=== PATIENT | female | born 1960 | race Two or more races ===

== ENCOUNTER 2023-04-24 08:15 | Inpatient (IN) | payer OTHER ==
[~2023-04-24] VITALS: Ht 162.6 cm; Wt 97.5 kg
[~2023-04-24 08:15] MED LIST: DIOVAN HCT 160-1 TAB PO; NORVASC2.5 MG PO; PERCOCET 5/321 UDTAB PO; PERCOCET 5/3251 TAB PO; SINGULAIR10 MG PO; TOPROL XL25 MG PO
[2023-04-24 10:13] LABS: PH,URINE 6.5 (5.0-8.0); URINE APPEARANCE Clear; URINE BILIRRUBIN Negative (NEGATIVE); URINE BLOOD Negative; URINE COLOR Yellow; URINE GLUCOSE Negative (NEGATIVE); URINE LEUKOCYTE Negative; URINE NITRATE Negative; URINE PROTEIN Negative (NEGATIVE); URINE UROBILINOGEN 0.2 E.U./dl
[2023-04-24 10:14] LABS: URINE BACTERIA 94.4 uL (0.0-1933); URINE EPITHELIAL CELLS 4.9 uL (0.0-38.8); URINE WBC 3.2 uL (0.0-23.2)
[2023-04-24 10:27] LABS: HEMATOCRIT 38.1 % (36.0-45.00); HEMOGLOBIN 12.3 g/dL (12.0-15.00); MEAN CELL VOLUME 79.6 fL (80.00-100.00); MEAN CORPUSCULAR HEMOGLOBIN 25.6 pg (27.00-32.0); MEAN CORPUSCULAR HGB CONC 32.1 g/dl (32.0-36.0); PLATELET COUNT 343 K/uL (150-450); RED BLOOD COUNT 4.79 M/uL (4.00-6.00); RED CELL DISTRIBUTION WIDTH 16.1 % (11.5-14.5)
[2023-04-24 10:42] LABS: URINE RBC 1.8 uL (0.0-20.8)
[2023-04-24 10:48] LABS: INR 1.06; PROTHROMBIN TIME 11.1 SECONDS (9.0-11.5)
[2023-04-24 10:50] LABS: ALBUMIN 3.3 gm/dL (3.4-5.0); BILIRUBIN TOTAL 0.37 mg/dL (0.3-1.2); CREATININE SERUM 0.57 mg/dL (0.55-1.02); GFR 107.83; GLOBULINA 4.5 G/DL (2.4-3.5); POTASSIUM 3.59 mEq/L (3.5-5.1); TOTAL PROTEIN 7.8 gm/dL (6.4-8.2)
[2023-05-01 06:48] LABS: HEMATOCRIT 33.4 % (36.0-45.00); MEAN CELL VOLUME 78.9 fL (80.00-100.00); MEAN CORPUSCULAR HGB CONC 32.9 g/dl (32.0-36.0); PLATELET COUNT 276 K/uL (150-450); RED BLOOD COUNT 4.23 M/uL (4.00-6.00); RED CELL DISTRIBUTION WIDTH 16.1 % (11.5-14.5)
[2023-05-02 05:23] LABS: HEMATOCRIT 32.6 % (36.0-45.00); MEAN CELL VOLUME 79.8 fL (80.00-100.00); MEAN CORPUSCULAR HEMOGLOBIN 26.1 pg (27.00-32.0); MEAN CORPUSCULAR HGB CONC 32.7 g/dl (32.0-36.0); PLATELET COUNT 301 K/uL (150-450); RED BLOOD COUNT 4.09 M/uL (4.00-6.00); RED CELL DISTRIBUTION WIDTH 15.7 % (11.5-14.5)
[2023-05-02 05:46] LABS: HEMOGLOBIN 10.7 g/dL (12.0-15.00)
== END 2023-05-02 14:33 | DRG 470 ==
LOC: O/R 04-30 05:16 → SURH 04-30 08:15 → SURG 04-30 10:21
PROVIDERS: ADMIT Orthopaedic Surgery; ATTEND Orthopaedic Surgery
PROC: 0SRD0JZ Replacement of Left Knee Joint with Synthetic Substitute, Open Approach (ICD-10-PCS; principal; 2023-04-30 09:15)
DX: M17.12 Unilateral primary osteoarthritis, left knee (principal); M85.662 Other cyst of bone, left lower leg